=== PATIENT | female | born 1990 | race American Indian/Alaskan Native ===

== ENCOUNTER 2017-08-01 18:14 | Emergency (ER) | payer BC ==
[2017-08-01 18:29] VITALS: RESP 18; TEMP 98.7; O2SAT 100
--- NOTE | 2017-08-01 18:48 | ED PDOC ---
Arrival/HPI - General Chief Complaint: Lower Extremity Problem/Injury Time Seen by Provider: 08/01/17 18:42 Historian: Patient - History of Present Illness Narrative History of Present Illness (Text): 08/01/17 18:50 26-year-old female presents today with a one-week history of right knee pain. Patient denies any trauma or injury. Patient states her knee pain has been gradually increasing and today while at work she felt a pop in the knee and the pain worsened in the knee. Patient states she applied ice to the area and thought the pain improved but throughout the day the pain continued to worsen. Patient denies numbness weakness or tingling in the extremity. Denies calf pain. Patient states the pain is located along the anterior aspect of the knee. Patient states when she was younger she had fluid on the knee. Patient states she took Motrin this morning for pain. Patient states she is able to ambulate but with pain. no other complaints. Time/Duration: 1 week Symptom Course: Worsening Quality: Aching, Stabbing Severity Level: Mild Past Medical History - Provider Review Nursing Documentation Reviewed: Yes - Travel History Have you recently traveled outside [place] w/in the past 3 mons?: No - Infectious Disease Hx of Infectious Diseases: None - Psychiatric Hx Substance Use: No Family/Social History - Physician Review Nursing Documentation Reviewed: Yes Family/Social History: Unknown Family HX Smoking Status: Light Smoker < 10 Cigarettes Daily Hx Alcohol Use: No Hx Substance Use: No Allergies/Home Meds Allergies/Adverse Reactions: Allergies No Known Allergies Allergy (Verified 08/01/17 18:29) Home Medications: Home Meds Medication Instructions Recorded Confirmed No Known Home Med 08/01/17 08/01/17 Review of Systems - Review of Systems Constitutional: absent: Fatigue, Fevers Respiratory: absent: SOB, Cough Cardiovascular: absent: Chest Pain, Palpitations Gastrointestinal: absent: Abdominal Pain, Nausea, Vomiting Musculoskeletal: Arthralgias (right knee pain). absent: Back Pain, Neck Pain Skin: absent: Rash, Pruritis Neurological: absent: Headache, Dizziness Psychiatric: absent: Anxiety, Depression Physical Exam Vital Signs Reviewed: Yes Vital Signs Temp Pulse Resp BP Pulse Ox 08/01/17 18:27 98.7 F 86 18 112/69 100 Temperature: Afebrile Blood Pressure: Normal Pulse: Regular Respiratory Rate: Normal Appearance: Positive for: Well-Appearing, Non-Toxic, Comfortable Pain Distress: None Mental Status: Positive for: Alert and Oriented X 3 - Systems Exam Head: Present: Atraumatic Neck: Present: Normal Range of Motion Respiratory/Chest: Present: Clear to Auscultation, Good Air Exchange. No: Respiratory Distress, Accessory Muscle Use Cardiovascular: Present: Regular Rate and Rhythm, Normal S1, S2. No: Murmurs Upper Extremity: Present: Normal Inspection Lower Extremity: Present: NORMAL PULSES, Normal ROM, Tenderness (right knee; + ttp over anterior aspect of knee. full rom of knee. no edema, no erythema; no ecchymosis; full rom of knee. sensation and distal pulses intact. cap refill < 2. no calf tenderness. ambulates with steady gait. ), Temperature Abnormalties, Neurovascularly Intact, Capillary Refill < 2 s. No: Edema, CALF TENDERNESS, Swelling, Erythema, Deformity Neurological: Present: GCS=15, Speech Normal Skin: Present: Warm, Dry, Normal Color. No: Rashes Psychiatric: Present: Alert, Oriented x 3 Medical Decision Making ED Course and Treatment: 08/01/17 18:48 Patient nontoxic well-appearing in no distress with stable vital signs pt with + test in er; pt states LMP was last month; denies any complaints. no abdominal pain. discussed risks and benefits of knee xray and radiation exposure and risk to fetus with the patient in depht. pt still agreed to xrays. consent for xrays obtained. signed by patient. scanned into knee xray documentation. X-rays of the knee: no fracture tylenol Po Patient placed in knee immobilizer. Crutches given for ambulation i advised the patient that although the xrays show no fracture; there is still a possibility for ligamentous or tendon injury the patient must see the orthopedist for further evaluation. I discussed all results with patient advised to followup with the orthopedist for the next 2 days. Return if symptoms worsen persist or new symptoms develop pt was advised to f/u with studio engineer regarding + test. Patient verbalizes understanding of discharge instructions and need for immediate followup. all aspects of this case were discussed the attending of record. Impression: knee pain tylenol every 4 hours as needed for pain Rest, ice, compression, elevation Use crutches for ambulation Followup with the orthopedist within the next 2 days Follow up with OBgyn regarding + test Followup with primary care physician within the next 2 days Return if symptoms worsen persist or if new symptoms develop - RAD Interpretation Radiology Orders: 08/01/17 18:43 KNEE W PATELLA RIGHT 3 VIEW [RAD] Stat Disposition/Present on Arrival - Present on Arrival Any Indicators Present on Arrival: No History of DVT/PE: No History of Uncontrolled Diabetes: No Urinary Catheter: No History of Decub. Ulcer: No History Surgical Site Infection Following: None - Disposition Have Diagnosis and Disposition been Completed?: Yes Diagnosis: Knee pain, test positive Disposition: HOME/ ROUTINE Disposition Time: 18:45 Patient Plan: Discharge Patient Problems: Current Active Problems Problem Status Onset Knee pain Acute test positive Acute Condition: GOOD Discharge Instructions (ExitCare): Knee Pain (DC) Additional Instructions: tylenol every 4 hours as needed for pain Rest, ice, compression, elevation Use crutches for ambulation Followup with the orthopedist within the next 2 days Follow up with OBgyn regarding + test Followup with primary care physician within the next 2 days Return if symptoms worsen persist or if new symptoms develop Referrals: [facility] [place] [Outside] - Follow up with primary [facility] [place] [Outside] - Follow up with primary Terrence Alberts III, MD [Medical Doctor] - Follow up with primary Danny Camilo MD [Staff Provider] - Follow up with primary Leticia Schwarz MD [Staff Provider] - Follow up with primary Forms: [employer] ([employer]), WORK NOTE
[2017-08-01 21:36] VITALS: BP 119/76; PULSE 80
--- NOTE | 2017-08-02 09:58 | RAD ---
PROCEDURE: Right Knee Radiographs. HISTORY: knee pain COMPARISON: None. FINDINGS: BONES: Normal. No fracture. JOINTS: Normal. No osteoarthritis. JOINT EFFUSION: None. OTHER FINDINGS: None. IMPRESSION: Normal radiographs of the right knee.
== END 2017-08-01 19:50 | disposition home or self-care (01) ==
LOC: MERGE 18:14 → ED 18:14
DX: M25.561 Pain in right knee (principal); Z32.01 Encounter for pregnancy test, result positive; F17.210 Nicotine dependence, cigarettes, uncomplicated